=== PATIENT | male | born 1975 | race Caucasian/White ===

== ENCOUNTER 2017-08-09 18:08 | Emergency (ER) | payer MEDICAID ==
[2017-08-09] MEDS: KETOROLAC 60 MG INJ IM (19:08)
[2017-08-09] MEDS: ACETAMINOPHEN 325 MG TAB PO (19:08)
== END 2017-08-09 23:03 | disposition home or self-care (01) ==
LOC: E/R 18:08 → FTE 23:03
DX: J10.1 Influenza due to other identified influenza virus with other respiratory manifestations (principal)
CPT/HCPCS: 71045; 87400; 96372; 99284-25